=== PATIENT | female | born 1950 | race African-American/Black ===

== ENCOUNTER 2019-09-14 13:40 | Inpatient (IN) | payer OTHER ==
[~2019-09-14] VITALS: Ht 167.6 cm; Wt 95.7 kg
[~2019-09-14 13:40] MED LIST: ACCUNEB SO1.25 MG/1 INH; CO Q-10100 MG PO; IBUPROFEN 200200 M1 PO; PRAVACHOL20 MG PO; QUINAPRIL-HCTZ1 EAC2 PO; XARELTO10 MG PO
[2019-09-14 13:41] VITALS: BP 152/79
--- NOTE | 2019-09-14 13:50 | NUR ---
PT. TAKEN DIRECTLY TO ER EXAM ROOM 12 FOR EXAM.
[2019-09-14 14:26] LABS: BASOPHILS 0.5 % (0.0-2.0); EOSINOPHILS 2.7 % (0.0-3.0); HEMATOCRIT 40.8 % (37.0-47.0); HEMOGLOBIN 13.6 gm/dL (12.0-15.0); LYMPHOCYTES 25.2 % (24.0-44.0); MCHC 33.3 g/dL (28.0-37.0); MONOCYTES 8.2 % (1.0-8.0); PLATELET COUNT 228 thou/uL (150-400); POLYS 63.4 % (36.0-66.0); RBC 4.12 mil/uL (4.20-5.00); RDW 13.3 % (10.5-14.5); WBC 4.7 thou/uL (4.0-11.0)
[2019-09-14 14:43] LABS: PROTIME 10.3 Seconds (9.3-11.4)
[2019-09-14 14:57] LABS: ANION GAP 9 mmol/L (7-16); BUN 15 mg/dL (7-18); CALCIUM 10.3 mg/dL (8.5-10.1); CHLORIDE 100 mmol/L (98-107); CO2 28 mmol/L (21-32); CREATININE 0.6 mg/dL (0.6-1.0); GLUCOSE 110 mg/dL (74-106); SODIUM 137 mmol/L (136-145)
[2019-09-14 15:05] LABS: ALBUMIN 4.1 g/dL (3.4-5.0); SGOT 43 U/L (15-37); SGPT 47 U/L (30-65); TOTAL BILIRUBIN 0.4 mg/dL (<0.1-1.0); TOTAL PROTEIN 7.9 g/dL (6.4-8.2); TROPONIN-I <0.06 ng/mL (<0.06)
[2019-09-14 16:05] LABS: CHOLESTEROL 248 mg/dL (<200); HDL CHOLESTEROL 57 mg/dL (>40); LDL CHOLESTEROL 169 mg/dL (<100); TC:HDL 4.4 Ratio (Not establshd); TRIGLYCERIDE 110 mg/dL (<150); VLDL 22 mg/dL (<40)
[2019-09-14 16:06] LABS: SERUM ASSESSMENT Clear
[2019-09-14 16:31] LABS: TSH 2.045 uIU/mL (0.358-3.740)
--- NOTE | 2019-09-14 17:20 | EKG ---
[address] [place] [address] ELECTROCARDIOGRAM REPORT Name: ALLY GARCIA Room #: 170-12 ADM IN M.R.#: [id number] Admission: 09/14/19 Attend Phys: Antonino Alfred Discharge: Date of : 48 Report #: [id number] THIS REPORT FOR: //name// [facility] ED Test Date: 2019-09-14 Test Time: 14:19:14 Pat Name: ALLY GARCIA Department: Room: 170 Gender: F Creative Assistant: ESHEETS : 1950 Requested By: Dank Guo Order Number: [id number] MD: Primitivo Gipson Measurements Intervals [place] Rate: 83 P: 69 SD: 169 QRS: -17 QRSD: 94 T: 40 QT: 418 QTc: 492 Interpretive Statements Sinus rhythm Left ventricular hypertrophy Borderline prolonged QT interval Compared to ECG 07/12/2016 08:45:53 No significant changes Electronically Signed On 09-14-2019 17:19:49 CDT by Primitivo Gipson [email or web address] <ELECTRONICALLY SIGNED> By: Primitivo Gipson MD, [facility] 09/14/19 1719 1419 141 Primitivo Gipson MD, FACC /EPI
[2019-09-14 19:09] VITALS: BP 154/89
--- NOTE | 2019-09-14 19:49 | NUR ---
REPORT TO INPATIENT NURSESAIMA. AWAITING TRANSPORTATION TO FLOOR
[2019-09-14 20:06] VITALS: BP 159/79
--- NOTE | 2019-09-14 20:50 | NUR ---
INDIGOIN NOTE: ACCOMPANIED BY HER TWO DAUGTERS, SHE IS KEENLY ALERT, SHE IS ORIENTED TO ROOM. ASKING WHAT TO EXPECT TOMORROW AND TONIGHT. CARE PLAN STARTED.
--- NOTE | 2019-09-15 03:13 | NUR ---
no episodes tonight. moves all extremities, equal facial symmetry. sba to restroom , strong steady gait. denies pain. she is awre of plan of testing in the morning
[2019-09-15 04:12] VITALS: BP 147/80
[2019-09-15 09:07] VITALS: BP 141/76
--- NOTE | 2019-09-15 13:08 | 2DMMODE ---
[facility] [address] [place] [address] 2 D/M-MODE ECHOCARDIOGRAM Name: JOSEALLY Room #: 358-P ADM IN M.R.#: [id number] Admission: 09/14/19 Attend Phys: Antonino Esteban Discharge: Date of : 48 Report #: [id number] THIS REPORT FOR: //name// APPROVED REPORT Study performed: 09/15/2019 09:28:23 EXAM: Comprehensive 2D, Doppler, and color-flow Echocardiogram Patient Location: Echo lab Room #: [facility] Status: routine BSA: 2.05 HR: 76 bpm BP: 147/80 mmHg Rhythm: NSR Other Information Study Quality: Adequate Technically limited study due to obesity. Indications TIA. Hx: HTN, HLP Echo Enhancing Agent Indication: Rule out Shunt Agent(s) / Amount(s) Used: Definity 6 cc 2D Dimensions RVDd: 38.93 mm IVSd: 12.55 (7-11mm) LVOT Diam: 19.63 (18-24mm) LVDd: 43.65 mm PWd: 12.31 (7-11mm) LVDs: 27.53 (25-40mm) Aortic Root: 32.49 mm Volumes Left Atrial Volume (Systole) Single Plane 4CH: 47.77 mL Single Plane 2CH: 50.79 mL LA ESV Index: 26.00 mL/m2 Aortic Valve AoV Peak Guillermo.: 2.19 m/s AO Peak Gr.: 19.25 mmHg LVOT Max P.52 mmHg LVOT Max V: 1.77 m/s [facility] [address] [place] [address] 2 D/M-MODE ECHOCARDIOGRAM Name: ALLY GARCIA Room #: 358-P [facility]#: [id number] Admission: 09/14/19 Attend Phys: Antonino Esteban Discharge: Date of : 48 Report #: [id number] Vmax: 2.44 cm2 Mitral Valve E/A Ratio: 0.8 MV Decel. Time: 293.01 ms MV E Max Guillermo.: 0.71 m/s MV A Guillermo.: 0.93 m/s MV PHT: 84.97 ms IVRT: 83.04 ms Pulmonary Valve PV Peak Guillermo.: 1.05 m/s PV Peak Gr.: 4.37 mmHg Pulmonary Vein P Vein S: 0.73 m/s P Vein A: 0.38 m/s P Vein D: 0.46 m/s P Vein A Dur.: 141.9 msec P Vein S/D Ratio: 1.59 Tricuspid Valve TR Peak Guillermo.: 3.06 m/s TR Peak Gr.: 37.47 mmHg Left Ventricle The left ventricle is normal size. There is normal LV segmental wall motion. Mild concentric left ventricular hypertrophy. Left ventricular systolic function is hyperdynamic. LVEF is 65-70%. Mild diastolic dysfunction is present (impaired relaxation pattern). Right Ventricle The right ventricle is normal size. The right ventricular systolic function is normal. Atria The left atrium size is normal. Right to left shunting on contrast bubble study most consistent with a patent foramen ovale. The right atrium size is normal. Aortic Valve The aortic valve is normal in structure. No aortic regurgitation is present. There is no aortic valvular stenosis. Mitral Valve The mitral valve is normal in structure. Trace mitral regurgitation. [facility] [place] [address] 2 D/M-MODE ECHOCARDIOGRAM Name: JOSEALLY Room #: 358-P [facility] IN M.R.#: [id number] Admission: 09/14/19 Attend Phys: Antonino Esteban Discharge: Date of : 48 Report #: [id number] Tricuspid Valve The tricuspid valve is normal in structure. Moderate tricuspid regurgitation. Estimated PAP is 37mmHg plus the right atrial pressure. Pulmonic Valve Pulmonic valve is not well visualized. Great Vessels The aortic root is normal in size. Ascending aorta is not well visualized. IVC is not well visualized. Pericardium There is no pericardial effusion. <Conclusion> Left ventricular systolic function is hyperdynamic. There is normal LV segmental wall motion. Mild concentric left ventricular hypertrophy. Mild diastolic dysfunction The aortic valve is normal in structure. No aortic regurgitation or stenosis Right to left shunting on contrast bubble study most consistent with a patent foramen ovale. The mitral valve is normal in structure. Trace mitral regurgitation. Moderate tricuspid regurgitation. Estimated pulmonary artery pressure of 37mmHg plus the right atrial pressure. There is no pericardial effusion. <ELECTRONICALLY SIGNED> By: Primitivo Gipson MD, FACC 09/15/19 1308 1308 1308 Primitivo Gipson MD, FACC /INF
--- NOTE | 2019-09-15 13:43 | NUR ---
assessment: CM REVIEWED CHART AND MET WITH PATIENT AT THE BEDSIDE. PT WAS ADMITTED FOR ALTERED MENTATION. PT REPORTS SHE LIVES IN AN APT ALONE. PT REPORTS SHE HAS NO STEPS TO ENTER AND HAS A RAMP WELL AN ELEVATOR INSIDE. PT REPORTS SHE AMBULATES INDEPENDENTLY. PT REPORTS THAT SHE HAS A GRAB BAR IN THE SHOWER AND IS INDEPENDENT WITH ADLS. PT REPORTS SHE HAS NOT HAD HH IN THE PAST NOR BEEN TO A SNF. CM DISCUSSED ROLE. PT REPORTS SHE IS VERY INDEPENDENT AND DOES NOT WANT HH OR FEEL SHE NEEDS HH AT DISCHARGE. CM WILL CONTINUE TO FOLLOW TO ASSIST NEEDED.
--- NOTE | 2019-09-15 13:58 | EKG ---
[address] [address] ELECTROCARDIOGRAM REPORT Name: ALLY GARCIA Room #: 358-P ADM IN M.R.#: [id number] Admission: 09/14/19 Attend Phys: Antonino Alfred Discharge: Date of : 48 Report #: [id number] THIS REPORT FOR: //name// [facility] Test Date: 2019-09-15 Test Time: 10:02:13 Pat Name: ALLY GARCIA Department: Room: 358 Gender: F Full Stack Developer: GOPAL : 1950 Requested By: Antonino Alfred Order Number: [id number] MD: Bridger Ott Measurements Intervals Odd Rate: 75 P: 67 CA: 172 QRS: -23 QRSD: 91 T: 55 QT: 408 QTc: 456 Interpretive Statements Sinus rhythm Abnormal R-wave progression, early transition LVH with secondary repolarization abnormality Compared to ECG 09/14/2019 14:19:14 Early repolarization now present Electronically Signed On 09-15-2019 13:58:21 CDT by Bridger Ott [email or web address] <ELECTRONICALLY SIGNED> By: Bridger Ott MD 09/15/19 1358 1002 1002 Bridger Ott MD /EPI
[2019-09-15 14:51] VITALS: BP 142/72
--- NOTE | 2019-09-15 15:35 | NUR ---
Pt up ad madelyn, steady and coordinated gait. Ambulating to bathroom on own. A & O x4. No facial drooping present. No complaints at this time, calm and pleasnt mood. No pain present. Excellent meal consumption throughout day. Relaxing in bed at this time.
--- NOTE | 2019-09-15 16:12 | NUR ---
Assumed care approx. 0700 this AM. MRI results noted to be negative and ultrasound of carotids noted to have severe right sided stenosis. According to radiologist doctor, greater than 50% stenosis present despite what report says-addendum added to reports per radiologist doc. Patient oriented x4. No "stroke-like" events or episodes today. Maintenance fluids infusing per orders. Patient waiting to hear plan based on test results from today. Progress being made toward plan of care at this time.
[2019-09-15 20:30] VITALS: BP 169/74
[2019-09-16 04:00] VITALS: BP 121/84
--- NOTE | 2019-09-16 04:01 | NUR ---
PATIENT IS ALERT AND ORIENTED. PATIENT IS UP AD HARDY. NIH IS DC. PATIENT HAS STENOSIS TO RT CAROTID ART. UNKNOWN IF INPATIENT INTERVENTIONS OR OUTPATIENT. PATIENT IS NSR ON TELE. ROOM AIR. PATIENT DENIES PAIN. PATIENT IS RESTING COMFORTABLY IN BED. WCM. PATIENT IS PROGRESSING TO GOALS.
[2019-09-16 07:36] VITALS: BP 171/93
[2019-09-16] MEDS ORDERED: LIPITOR40 MG PO (10:23)
[2019-09-16] MEDS ORDERED: OLMESARTAN-HCT1 EAC1 PO (10:24)
[2019-09-16] MEDS ORDERED: ASA5UEC PO (10:24)
[2019-09-16 11:19] VITALS: BP 159/97
[2019-09-16 13:14] VITALS: BP 159/97
--- NOTE | 2019-09-16 13:36 | NUR ---
ON-GOING ASSESSMENT: PT HAS ORDERS TO DISCHARGE HOME TODAY WITH NO NEEDS.
[2019-09-16 14:23] VITALS: BP 159/97
[2019-09-16 14:24] VITALS: BP 159/97
--- NOTE | 2019-09-16 14:24 | NUR ---
Assumed care approx. 0700 this AM. Patient seen by hand cutter this morning. Follow up appointments made and patient supposed to visit office today post discharge-address given to patient. Discharge orders obtained. Prescriptions and drug info sheets given. Discharge packet discussed with patient. Both IVs taken out and tele monitor off. All belongings with patient. Patient taken out by wheelchair with nurse aide approx. 1424.
--- NOTE | 2019-09-25 14:17 | HC ---
[facility] [place] [address] [place] [address] CONSULTATION Name: ALLY GARCIA Room #: 358-P [facility] IN M.R.#: [id number] Admission: 09/14/19 Attend Phys: Antonino Alfred Discharge: 09/16/19 Date of : 48 Report #: [id number] THIS REPORT FOR: //name// CC: Keith Mejias DATE OF SERVICE: 09/15/2019 HISTORY OF PRESENT ILLNESS: This is a 69-year-old female patient who was seen by me in the Emergency Room yesterday and again today. This is a combined note. The patient had presented with a question of altered mental status and some facial weakness. When I saw this patient, the patient was back to the baseline. It was an unprovoked episode. There was no proceeding trauma. REVIEW OF SYSTEMS: Indicates she has a history of hypertension, asthma, hysterectomy, colonoscopy, and high cholesterol. She is presently not on any aspirin. It looks like she was on statin. This was a relevant 14-point review of system. PAST MEDICAL HISTORY: Negative for any stroke. FAMILY HISTORY: Negative for early age stroke. SOCIAL HISTORY: She indicates she does not smoke. PHYSICAL EXAMINATION: Indicates she is alert, responsive, able to follow simple and complex command. Her speech, concentration, fund of knowledge and memory is at her baseline. Cranial nerve examination 2-12 looks mostly unremarkable. There is no meningeal sign in this patient. There is no cerebellar sign. Neuromuscular examination is symmetrical. The patient underwent multiple testing, which includes CT angiogram, which was unremarkable. An MRI appeared unremarkable. ____ report was noticed, but CT angio is supposed to be much more accurate. I have asked the radiologist to look at it again and dictate an addendum. Lab indicates high cholesterol. Blood pressure is staying about 141/76, respirations 18, pulse is 77, temperature is 97.5. Her potassium is low at 3. TSH, vitamin B12 was okay. IMPRESSION: This patient may have an episode of transient ischemic attack, history is not very clear. RECOMMENDATION: I will put her on aspirin. I will get an EEG done. I discussed all of it with the patient yesterday and again today. I discussed her options with her. Her potassium is low and that need to be corrected and she needs to be on intensive statin therapy. [address] [address] CONSULTATION Name: ALLY GARCIA Room #: 358-P [facility] IN M.R.#: [id number] Admission: 09/14/19 Attend Phys: Antonino Alfred Discharge: 09/16/19 Date of : 48 Report #: [id number] Thank you very much for this referral. A total of about 50 minutes of time was spent taking care of this patient today and majority of that time was spent counseling and coordinating the patient's care. <ELECTRONICALLY SIGNED> By: Ray Mejias MD 09/25/19 1417 1331 1456 Ray Mejias MD /ysabel
== END 2019-09-16 14:31 | disposition home or self-care (01) | DRG 69 ==
LOC: ER 13:40 → EROBS 16:03 → 3W 16:03
PROVIDERS: Emergency Medicine; ADMIT Hospitalist
DX: G45.9 Transient cerebral ischemic attack, unspecified (principal); Q21.1 Atrial septal defect; J45.909 Unspecified asthma, uncomplicated; E78.00 Pure hypercholesterolemia, unspecified; E78.5 Hyperlipidemia, unspecified; I65.29 Occlusion and stenosis of unspecified carotid artery; I08.1 Rheumatic disorders of both mitral and tricuspid valves; I11.9 Hypertensive heart disease without heart failure; Z90.710 Acquired absence of both cervix and uterus; Z79.899 Other long term (current) drug therapy; Z82.49 Family history of ischemic heart disease and other diseases of the circulatory system
CPT/HCPCS: 10879

== ENCOUNTER → 2019-12-22 | Outpatient (CLI) | payer OTHER ==
[~2019-12-22] MED LIST changes: +ASA5UEC PO; +LIPITOR40 MG PO; +OLMESARTAN-HCT1 EAC1 PO
== END ==
LOC: SJCVCIMAG 11:47
DX: I63.9 Cerebral infarction, unspecified (principal); R01.1 Cardiac murmur, unspecified; Z86.73 Personal history of transient ischemic attack (TIA), and cerebral infarction without residual deficits

== ENCOUNTER → 2020-12-15 | Outpatient (CLI) | payer MEDICARE | LOC: SJCVC 14:02 | PROVIDERS: ATTEND Internal Medicine Cardiovascular Disease | DX: R94.31 Abnormal electrocardiogram [ECG] [EKG] (principal); I11.9 Hypertensive heart disease without heart failure; R01.1 Cardiac murmur, unspecified; I51.7 Cardiomegaly; I65.23 Occlusion and stenosis of bilateral carotid arteries; E78.5 Hyperlipidemia, unspecified; J45.909 Unspecified asthma, uncomplicated; Z82.49 Family history of ischemic heart disease and other diseases of the circulatory system; Z79.82 Long term (current) use of aspirin; Z79.899 Other long term (current) drug therapy; Z72.89 Other problems related to lifestyle ==

== ENCOUNTER 2021-03-05 16:29 | Inpatient (IN) | payer OTHER ==
[~2021-03-05] VITALS: Ht 170.2 cm; Wt 82.1 kg
--- NOTE | ~2021-03-05 | HC ---
[facility] [place] [address] [place] [address] CONSULTATION Name: ALLY GARCIA Room #: 216-P ADM IN .R.#: [id number] Admission: 03/05/21 Attend Phys: Hakeem Eagle MD Discharge: Date of : 48 Report #: [id number] THIS REPORT FOR: cc: Keith Boyer MD, David A. MD Khosla, Parveen K. MD ~ DATE OF SERVICE: 03/06/2021 HISTORY OF PRESENT ILLNESS: This is a 70-year-old female patient who was evaluated by me for 2 falls. She fell twice yesterday. She feels the right leg is weak. She says it came rather acutely and is going on for a couple of days. She did hit her head. She did drink some alcohol along with it. She denies any neck pain or a back pain. REVIEW OF SYSTEMS: Pretty extensive in this patient and some of it is from the records and some of it is from the patient herself. She has leg weakness, which is new. She said she had either a TIA or a stroke. She was in [facility]. Record indicates that she had a carotid stenosis and PFO. I am not sure what was done and I assume it was diagnosed at [facility]. She has a history of hypertension, asthma, hysterectomy, hyperlipidemia. She does drink alcohol and she did drink alcohol before the symptoms started. When she fell, she had some abrasions in the right lower extremity and she still has that. A 14-point review of system was carried out and is positive for a stroke in [facility], but I do not know whether it was stroke or TIA. She has some positive findings and we need to get the records from [facility] to that. Otherwise, presently she is not complaining of any neck pain, back pain, eye, ENT, cardiac, respiratory, GI, , musculoskeletal, constitutional, dermatological, hematological, psychiatric, throat, allergic symptom associated with present symptomatology. PAST MEDICAL HISTORY: Positive for TIA-like symptoms. FAMILY HISTORY: Negative for seizures. SOCIAL HISTORY: She does drink alcohol. PHYSICAL EXAMINATION: Indicates she is alert. She is responsive. Her speech looks intact. Cranial nerve examinations appear unremarkable. Her memory and fund of knowledge appear her baseline. On neuromuscular examination, she cannot dorsiflex her right foot at all. She does have plantar flexion, but the whole right leg looks somewhat weak, but she can have an antigravity movements in the right leg in the hip muscles. She does reasonably well with the position sense. She does feel subjective numbness on the right leg. Reflexes appeared to be diminished on both sides and she says she is not a diabetic. Pulses appeared to be palpable. Cardiac and respiratory examinations appear unremarkable. She is [facility] [address] [place] [address] CONSULTATION Name: ALLY GARCIA Room #: 216-P [facility] IN M.R.#: [id number] Admission: 03/05/21 Attend Phys: Hakeem Eagle MD Discharge: Date of : 48 Report #: [id number] an obese individual, but does not have any dysmorphic features of eyes, ears and face. She does not have any thyroid mass. She does not have any carotid bruit. Blood pressure is 188/93, respiration is 16, pulse is 79, temperature is 99.8. Her potassium was only 2.3 when she came in and it has persistently run low even in the past. LABORATORY DATA: She did have a CT scan of the head, which appeared unremarkable except for a superficial hematoma. IMPRESSION: Pretty difficult to form in this patient. 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 Therefore, it will be desirable to rule out any MINERAL ENGINEER lesion. She fell and she hit her head and cervical spine lesion need to be excluded. RECOMMENDATIONS: 1. I will give her some thiamine. 2. I will get an MRI of the brain done. 3. I will ask the rehab to see if she needs a brace and a consult. We will do some further workup in this patient and see if we can come up with any diagnosis in this patient more than the common peroneal nerve palsy. Thank you very much for this referral. By: 0725 0736 Ray Mejias MD /nt
[2021-03-05 16:36] VITALS: BP 133/75
[2021-03-05] MEDS ORDERED: DILTIAZEM 24HR240 M1 PO (16:55)
[2021-03-05 16:59] LABS: ABSOLUTE NEUTROPHILS 4.4 thou/uL (1.4-8.2); EOSINOPHILS 5.3 % (0.0-3.0); HEMATOCRIT 32.7 % (37.0-47.0); HEMOGLOBIN 11.1 gm/dL (12.0-15.0); LYMPHOCYTES 26.2 % (24.0-44.0); MCH 33.1 pg (26.0-34.0); MCHC 33.9 g/dL (28.0-37.0); MCV 97.7 fL (80.0-100.0); MONOCYTES 5.4 % (1.0-8.0); PLATELET COUNT 230 thou/uL (150-400); POLYS 62.1 % (36.0-66.0); RBC 3.34 mil/uL (4.20-5.00); RDW 14.5 % (10.5-14.5); WBC 7.1 thou/uL (4.0-11.0)
[2021-03-05 17:08] LABS: ALBUMIN 3.5 g/dL (3.4-5.0); CALCIUM 10.1 mg/dL (8.5-10.1); CREATININE 0.8 mg/dL (0.6-1.0); DIRECT BILIRUBIN 0.1 mg/dL (<0.1-0.2); TOTAL BILIRUBIN 0.4 mg/dL (0.2-1.0); TOTAL PROTEIN 7.5 g/dL (6.4-8.2)
[2021-03-05 17:11] LABS: POTASSIUM 2.3 mmol/L (3.5-5.1)
[2021-03-05 17:18] LABS: URINE BILIRUBIN NEGATIVE (Negative); URINE BLOOD 1+ (Negative); URINE CLARITY CLEAR; URINE COLOR YELLOW; URINE GLUCOSE-RANDOM* NEGATIVE (Negative); URINE KETONES NEGATIVE (Negative); URINE LEUKOCYTES-REFLEX NEGATIVE (Negative); URINE NITRITE-REFLEX NEGATIVE (Negative); URINE PROTEIN (DIPSTICK) NEGATIVE (Negative); URINE UROBILINOGEN 0.2 E.U./dl (0.2-1.0)
[2021-03-05 17:28] LABS: CASTS None Seen /LPF (None Seen); SQUAMOUS 0-3 Few /LPF (0-3); URINE RBC None Seen /HPF (0-2); URINE WBC-REFLEX 0-5 Rare /HPF (0-5)
[2021-03-05 17:32] LABS: BACTERIA-REFLEX 1-9 Few /HPF (None Seen); CRYSTALS None Seen /LPF (None Seen)
[2021-03-05] MEDS ORDERED: ASA81BEC PO (17:52)
[2021-03-05 18:04] VITALS: BP 132/57
[2021-03-05] MEDS ORDERED: IBUPROFEN 800800 M1 PO (18:26)
[2021-03-05 18:27] VITALS: BP 168/87
[2021-03-05] MEDS ORDERED: ROSUVASTATIN CA40 MG PO (18:27)
--- NOTE | 2021-03-05 18:45 | NUR ---
RECIEVED PT FROM ED S/P FALL. VSS PLACED ON MONITOR AND SANDWICH GIVEN. KCL INFUSING AT 7MCG/MIN DUE TO PAIN. REPORT GIVEN TO ON COMING SHIFT.
[2021-03-05 18:50] VITALS: BP 168/81
[2021-03-05 20:15] VITALS: BP 161/93
[2021-03-06 04:45] VITALS: BP 188/93
[2021-03-06 05:04] LABS: CALCIUM 9.1 mg/dL (8.5-10.1); CREATININE 0.6 mg/dL (0.6-1.0); MCH 32.6 pg (26.0-34.0); MCHC 33.3 g/dL (28.0-37.0); MCV 97.9 fL (80.0-100.0); RBC 3.37 mil/uL (4.20-5.00); RDW 14.7 % (10.5-14.5); WBC 5.5 thou/uL (4.0-11.0)
[2021-03-06 05:16] LABS: POTASSIUM 2.7 mmol/L (3.5-5.1)
--- NOTE | 2021-03-06 06:23 | NUR ---
PATIENT STILL HAS CRITICAL POTASSIUM AFTER REPLACEMENT.NOW GIVING BOTH IV AND K PILL AND WILL CHECK MAG LEVEL PER RAIL EQUIPMENT OPERATOR.COMPLAIN OF PAIN.BP ELEVATED THIS MORNING.TYLENOL GIVEN ORDERED.POC CONTINUED.
[2021-03-06 08:00] VITALS: BP 153/86
--- NOTE | 2021-03-06 08:19 | NUR ---
INFORM DR. PEREZ OFFICE MRI NOT WORKING TODAY AND WILL NOT BE AVAILABLE TILL TOMORROW.
[2021-03-06 11:34] LABS: CALCIUM 9.5 mg/dL (8.5-10.1); CREATININE 0.7 mg/dL (0.6-1.0); POTASSIUM 3.2 mmol/L (3.5-5.1)
[2021-03-06 12:00] VITALS: BP 156/80
[2021-03-06 16:00] VITALS: BP 151/82
--- NOTE | 2021-03-06 17:06 | NUR ---
met with patient who admits from with falls/AMS. Patient reports she lives in apt alone. Apt complex has an elevator. 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 Patient has walker for home use if suggested. Discussed dc planning. Casemgt following.
--- NOTE | 2021-03-06 17:31 | NUR ---
PT'S DAUGHTER AND SISTER AT BEDSIDE THIS EVENING AND WANTED UPDATE ON PT. PT WAS ABLE TO TELL FAMILY WHAT DR. SINGH HAD TOLD HER ABOUT REDUCING THE AMOUNT OF ALCOHOL SHE DRINKS AND HER PLAN OF CARE. ANSWERED ALL PT AND FAMILY QUESTIONS. WILL CONTINUE TO ASSESS.
[2021-03-06 19:41] LABS: CALCIUM 9.6 mg/dL (8.5-10.1); CREATININE 0.8 mg/dL (0.6-1.0); MAGNESIUM 1.8 mg/dL (1.8-2.4)
[2021-03-06 19:47] VITALS: BP 158/68
--- NOTE | 2021-03-07 00:54 | NUR ---
SHOWERED TONIGHT.DENIES PAIN.MONITOR SHOWS SR.POC CONTINUED.
[2021-03-07 04:52] LABS: HEMATOCRIT 31.1 % (37.0-47.0); HEMOGLOBIN 10.4 gm/dL (12.0-15.0); MCH 32.8 pg (26.0-34.0); MCHC 33.4 g/dL (28.0-37.0); MCV 98.4 fL (80.0-100.0); RBC 3.16 mil/uL (4.20-5.00); RDW 14.8 % (10.5-14.5); WBC 4.5 thou/uL (4.0-11.0)
[2021-03-07 04:55] LABS: CALCIUM 9.5 mg/dL (8.5-10.1); CREATININE 0.6 mg/dL (0.6-1.0); POTASSIUM 3.1 mmol/L (3.5-5.1)
[2021-03-07 05:09] VITALS: BP 150/94
[2021-03-07 08:00] VITALS: BP 150/80
--- NOTE | 2021-03-07 11:20 | NUR ---
AAOX4. ELECTROLYTES REPLACED. SR PER TELE. DENIES CP, SOA. MRI/MRA TODAY.
[2021-03-07 16:00] VITALS: BP 175/79
[2021-03-07 19:25] VITALS: BP 148/70
[2021-03-07 20:27] LABS: MAGNESIUM 1.9 mg/dL (1.8-2.4); POTASSIUM 3.6 mmol/L (3.5-5.1)
--- NOTE | 2021-03-08 01:57 | NUR ---
MAG AND K LEVEL IS NOW WITHIN NORMAL LIMITS.DENIES PAIN.ABLE TO FLEX HER FOOT. MONITOR SHOWS SR.POC CONTINUED.
[2021-03-08 04:35] VITALS: BP 162/79
[2021-03-08 07:20] VITALS: BP 155/87
[2021-03-08] MEDS ORDERED: VITAMIN B-1100 M2 PO (11:01)
[2021-03-08 11:13] VITALS: BP 155/87
[2021-03-08 11:46] VITALS: BP 155/87
[2021-03-08 13:15] VITALS: BP 155/87
--- NOTE | 2021-03-08 13:45 | NUR ---
PT ALERT AND ORIENTED TIMES FOUR. VSS. PT DENIES PAIN/SOA. DAVID TO TOP OF HEAD INTACT. PT TOLERATES MEDS AND MEALS. PT UP WITH STANDBY ASSIST. PLANS FOR DISCHARGE HOME TODAY. WILL CONTINUE TO MONITOR.
--- NOTE | 2021-03-08 14:38 | NUR ---
PT DISCHARGING TODAY TO HOME WITH HH FAXED REFERRAL TO [facility] HH SPOKE WITH CARLA IN [place] THEY CAN ACCEPT. FAXED DC ORDERS/SUMMARY SPOKE WITH CARLA AND SHE RECEIVED ORDERS AND WILL ARRANGE VISITS WITH PT.
== END 2021-03-08 13:49 | disposition home health service (06) | DRG 981 ==
LOC: ER 16:29 → EROBS 18:05 → 2N 18:05
PROVIDERS: Emergency Medicine; ADMIT Hospitalist; ATTEND Hospitalist
PROC: 0YQHXZZ Repair Right Lower Leg, External Approach (ICD-10-PCS; principal; 2021-03-05)
PROC: 0HQ0XZZ Repair Scalp Skin, External Approach (ICD-10-PCS; principal; 2021-03-05)
DX: S01.01XA Laceration without foreign body of scalp, initial encounter (principal); G93.41 Metabolic encephalopathy; S81.811A Laceration without foreign body, right lower leg, initial encounter; F10.129 Alcohol abuse with intoxication, unspecified; S06.9X0A Unspecified intracranial injury without loss of consciousness, initial encounter; E87.6 Hypokalemia; Y90.4 Blood alcohol level of 80-99 mg/100 ml; E78.00 Pure hypercholesterolemia, unspecified; I10 Essential (primary) hypertension; E78.5 Hyperlipidemia, unspecified; Z60.2 Problems related to living alone; R63.4 Abnormal weight loss; K59.00 Constipation, unspecified; J45.909 Unspecified asthma, uncomplicated; Z90.710 Acquired absence of both cervix and uterus; Z86.73 Personal history of transient ischemic attack (TIA), and cerebral infarction without residual deficits; Z79.82 Long term (current) use of aspirin; Z79.899 Other long term (current) drug therapy; Z82.49 Family history of ischemic heart disease and other diseases of the circulatory system; Z68.28 Body mass index [BMI] 28.0-28.9, adult; Z23 Encounter for immunization; W18.39XA Other fall on same level, initial encounter; Y93.89 Activity, other specified; Y92.89 Other specified places as the place of occurrence of the external cause; Y99.8 Other external cause status; G57.30 Lesion of lateral popliteal nerve, unspecified lower limb
CPT/HCPCS: 10081

== ENCOUNTER 2021-03-17 14:01 | Emergency (ER) | payer OTHER ==
[~2021-03-17] VITALS: Ht 170.2 cm; Wt 82.1 kg
[~2021-03-17 14:01] MED LIST changes: +ASA81BEC PO; +DILTIAZEM 24HR240 M1 PO; +IBUPROFEN 800800 M1 PO; +ROSUVASTATIN CA40 MG PO; +VITAMIN B-1100 M2 PO
[2021-03-17] MEDS ORDERED: LEVOFLOXACIN750 MG PO (15:36)
[2021-03-17 15:55] VITALS: BP 154/87
== END 2021-03-17 15:55 | disposition home or self-care (01) ==
LOC: ER 14:01
DX: S01.01XD Laceration without foreign body of scalp, subsequent encounter (principal); L03.115 Cellulitis of right lower limb; I10 Essential (primary) hypertension; J45.909 Unspecified asthma, uncomplicated; E78.5 Hyperlipidemia, unspecified; Z90.710 Acquired absence of both cervix and uterus; Z79.899 Other long term (current) drug therapy; X58.XXXD Exposure to other specified factors, subsequent encounter